=== PATIENT | male | born 1955 | race Caucasian/White ===

== ENCOUNTER 2019-08-02 06:00 | Outpatient (RCR) | payer OTHER, SELFPAY | END 2019-08-21 23:59 | disposition home or self-care (01) | LOC: WPT 06:00 | PROVIDERS: PCP Neurological Surgery; Referring Provider Neurological Surgery; Visit Provider Neurological Surgery | DX: Z98.890 Other specified postprocedural states (principal) | CPT/HCPCS: 97110; 97112; 97161 ==

== ENCOUNTER 2019-08-22 06:00 | Outpatient (RCR) | payer OTHER, SELFPAY | END 2019-09-21 23:59 | disposition home or self-care (01) | LOC: WPT 06:00 | PROVIDERS: PCP Neurological Surgery; Referring Provider Neurological Surgery; Visit Provider Neurological Surgery | DX: Z98.890 Other specified postprocedural states (principal) | CPT/HCPCS: 97110; 97112; 97140; 97164 ==

== ENCOUNTER 2019-09-22 06:00 | Outpatient (RCR) | payer OTHER, SELFPAY | END 2019-10-21 23:59 | disposition home or self-care (01) | LOC: WPT 06:00 | PROVIDERS: PCP Neurological Surgery; Referring Provider Neurological Surgery; Visit Provider Neurological Surgery | DX: Z98.890 Other specified postprocedural states (principal); Z98.1 Arthrodesis status | CPT/HCPCS: 97110 ==

== ENCOUNTER 2021-02-23 06:00 | Outpatient (RCR) | payer MEDICARE, OTHER, SELFPAY | END 2021-03-22 23:59 | disposition home or self-care (01) | LOC: WPT 06:00 | PROVIDERS: PCP Neurological Surgery; Referring Provider Neurological Surgery; Visit Provider Neurological Surgery | DX: M48.062 Spinal stenosis, lumbar region with neurogenic claudication (principal); M54.16 Radiculopathy, lumbar region | CPT/HCPCS: 97110; 97161 ==

== ENCOUNTER → 2021-08-26 12:02 | Outpatient (BNVA) | payer MEDICARE, OTHER, SELFPAY | PROVIDERS: PCP Neurological Surgery; Visit Provider Nurse Practitioner | DX: R50.9 Fever, unspecified (principal) | CPT/HCPCS: 87400 ==

== ENCOUNTER → 2023-05-11 11:13 | Outpatient (BNVA) | payer MEDICARE, OTHER, SELFPAY | PROVIDERS: PCP Neurological Surgery; Visit Provider Nurse Practitioner | DX: R05.9 Cough, unspecified (principal); J02.9 Acute pharyngitis, unspecified; R09.89 Other specified symptoms and signs involving the circulatory and respiratory systems; J00 Acute nasopharyngitis [common cold]; J02.0 Streptococcal pharyngitis | CPT/HCPCS: 87400; 87880 ==

== ENCOUNTER → 2023-05-12 17:01 | Outpatient (BNVA) | payer MEDICARE, OTHER, SELFPAY | PROVIDERS: PCP Neurological Surgery; Visit Provider Nurse Practitioner Family | DX: J40 Bronchitis, not specified as acute or chronic (principal); J06.9 Acute upper respiratory infection, unspecified | CPT/HCPCS: 71046 ==

== ENCOUNTER → 2023-12-03 08:43 | Outpatient (BNVA) | payer MEDICARE, OTHER, SELFPAY | PROVIDERS: PCP Neurological Surgery; Visit Provider Nurse Practitioner Family | DX: L57.0 Actinic keratosis (principal); L82.0 Inflamed seborrheic keratosis; L82.1 Other seborrheic keratosis; I78.8 Other diseases of capillaries; L81.4 Other melanin hyperpigmentation | CPT/HCPCS: 17004; 17110; 99203 ==